=== PATIENT | male | born 1995 | race African-American/Black ===

== ENCOUNTER 2023-09-23 13:16 | Emergency (ER) | payer SELFPAY ==
[~2023-09-23] VITALS: Ht 175.3 cm; Wt 64.0 kg
[2023-09-23 13:17] VITALS: TEMP 97.7; O2SAT 99
[2023-09-23] MEDS: IBUPROFEN 400MG TABLET PO NR (14:11)
[2023-09-23] MEDS ORDERED: NAPR-1176 MT (14:27)
[2023-09-23 14:33] VITALS: BP 138/88; PULSE 86; RESP 14
== END 2023-09-23 14:37 | disposition home or self-care (01) ==
LOC: ER 13:52
DX: S90.31XA Contusion of right foot, initial encounter (principal); X58.XXXA Exposure to other specified factors, initial encounter; Y93.89 Activity, other specified; Y92.89 Other specified places as the place of occurrence of the external cause; Y99.8 Other external cause status
CPT/HCPCS: 73610; 99283

== ENCOUNTER 2023-11-01 12:36 | Emergency (ER) | payer SELFPAY ==
[~2023-11-01] VITALS: Ht 175.3 cm; Wt 60.0 kg
[~2023-11-01 12:36] MED LIST: NAPR-1176 MT
[2023-11-01 12:48] VITALS: O2SAT 99
[2023-11-01 13:20] VITALS: O2SAT 99
[2023-11-01] MEDS ORDERED: LIDOCAINE 5% PATCH TOP SCH (13:45)
[2023-11-01 14:03] VITALS: TEMP 98.6
[2023-11-01] MEDS: ACETAMINOPHEN 325MG TABLET PO ONE (14:03)
[2023-11-01 14:04] VITALS: PULSE 78
[2023-11-01] MEDS: CYCLOBENZAPRINE 10MG TABLET PO ONE (14:04)
[2023-11-01] MEDS: KETOROLAC 15MG/ML VIAL IM ONE (14:04)
[2023-11-01 14:05] VITALS: BP 110/68; RESP 16
[2023-11-01] MEDS: LIDOCAINE 5% PATCH TOP SCH (14:05)
[2023-11-01] MEDS ORDERED: CYCL5TAB MT (14:53)
[2023-11-01] MEDS ORDERED: LIDO700A15 TP (14:53)
== END 2023-11-01 15:04 | disposition home or self-care (01) ==
LOC: ER 12:36
DX: M54.50 Low back pain, unspecified (principal); Z00.00 Encounter for general adult medical examination without abnormal findings
CPT/HCPCS: 96372; 99283; J1885; Z7610